=== PATIENT | female | born 1980 | race Caucasian/White ===

== ENCOUNTER 2017-12-05 07:06 | Emergency (ER) | payer SELFPAY ==
[~2017-12-05] VITALS: Ht 149.9 cm; Wt 73.4 kg
[2017-12-05 07:08] VITALS: BP 139/86
[2017-12-05] MEDS ORDERED: HYDROcodone/APAP 5/325 TABLET ONE (07:23)
[2017-12-05] MEDS ORDERED: HYDROcodone/APAP 5/325 TABLET PO ONE (07:30)
[2017-12-05] MEDS ORDERED: LIDOCAINE-MPF 1%, 5ML INFIL ONE (07:30)
[2017-12-05] MEDS ORDERED: LIDOCAINE-MPF 1%, 2ML ONE (07:32)
== END 2017-12-05 08:30 | disposition home or self-care (01) ==
LOC: ED 08:24
DX: L02.31 Cutaneous abscess of buttock (principal); F17.210 Nicotine dependence, cigarettes, uncomplicated; J44.9 Chronic obstructive pulmonary disease, unspecified; Z98.51 Tubal ligation status
CPT/HCPCS: 10060; 99283

== ENCOUNTER 2017-12-07 10:22 | Emergency (ER) | payer SELFPAY ==
[~2017-12-07] VITALS: Ht 149.9 cm; Wt 73.3 kg
[2017-12-07 10:32] VITALS: BP 126/77
== END 2017-12-07 11:09 | disposition home or self-care (01) ==
LOC: ED 10:47
DX: L02.31 Cutaneous abscess of buttock (principal); F17.200 Nicotine dependence, unspecified, uncomplicated; J44.9 Chronic obstructive pulmonary disease, unspecified; Z98.51 Tubal ligation status
CPT/HCPCS: 99283

== ENCOUNTER 2018-06-22 08:00 | Emergency (ER) | payer SELFPAY ==
[~2018-06-22] VITALS: Ht 149.9 cm; Wt 69.9 kg
[2018-06-22 08:05] VITALS: BP 137/94
[2018-06-22] MEDS ORDERED: OXYcodone/APAP 5/325MG TABLET ONE (08:49)
[2018-06-22] MEDS ORDERED: BACITRACIN ZINC OINT 500U/GM, 0.9 GM ONE (08:56)
[2018-06-22] MEDS ORDERED: DIPH,PERTUSS(ACELL),TET VAC/PF 0.5 ML IM-VACC ONE ×2 (08:59→09:00)
[2018-06-22] MEDS ORDERED: OXYcodone/APAP 5/325MG TABLET PO ONE (09:00)
== END 2018-06-22 10:04 | disposition home or self-care (01) ==
LOC: ED 09:42
DX: S60.511A Abrasion of right hand, initial encounter (principal); J44.9 Chronic obstructive pulmonary disease, unspecified; X58.XXXA Exposure to other specified factors, initial encounter; Y93.89 Activity, other specified; Y92.009 Unspecified place in unspecified non-institutional (private) residence as the place of occurrence of the external cause; Y99.8 Other external cause status
CPT/HCPCS: 29125; 90471; 90715